=== PATIENT | female | born 1965 | race Caucasian/White ===

== ENCOUNTER → 2017-04-03 | Outpatient (CLI) | payer OTHER | LOC: FIMAGING 09:00 | DX: Z12.31 Encounter for screening mammogram for malignant neoplasm of breast (principal) | CPT/HCPCS: G0202 ==

== ENCOUNTER → 2018-04-12 | Outpatient (CLI) | payer OTHER | LOC: FIMAGING 11:09 | DX: Z12.31 Encounter for screening mammogram for malignant neoplasm of breast (principal) ==

== ENCOUNTER → 2018-05-04 | Outpatient (CLI) | payer OTHER | LOC: FIMAGING 09:16 | DX: N60.02 Solitary cyst of left breast (principal) ==